=== PATIENT | female | born 1940 | race Caucasian/White ===

== ENCOUNTER 2022-08-11 12:46 | Outpatient (RCR) | payer MEDICARE, SELFPAY | END 2022-10-30 14:06 | disposition home or self-care (01) | LOC: HO.WCC 12:46 | PROVIDERS: PCP Nurse Practitioner Family; Visit Provider Physician Assistant | DX: C44.42 Squamous cell carcinoma of skin of scalp and neck (principal); C34.92 Malignant neoplasm of unspecified part of left bronchus or lung; C34.91 Malignant neoplasm of unspecified part of right bronchus or lung; I10 Essential (primary) hypertension; Z87.891 Personal history of nicotine dependence; Z92.21 Personal history of antineoplastic chemotherapy; Z92.3 Personal history of irradiation | CPT/HCPCS: 17250; 97597; 97602; 99213 ==

== ENCOUNTER 2022-11-27 13:44 | Outpatient (RCR) | payer MEDICARE, SELFPAY | END 2023-02-12 16:00 | disposition home or self-care (01) | LOC: HO.WCC 13:44 | PROVIDERS: PCP Nurse Practitioner Family; Visit Provider Physician Assistant | DX: S11.90XA Unspecified open wound of unspecified part of neck, initial encounter (principal); C79.89 Secondary malignant neoplasm of other specified sites; C77.0 Secondary and unspecified malignant neoplasm of lymph nodes of head, face and neck; C34.92 Malignant neoplasm of unspecified part of left bronchus or lung; C34.91 Malignant neoplasm of unspecified part of right bronchus or lung; I10 Essential (primary) hypertension; Z92.3 Personal history of irradiation; Z87.891 Personal history of nicotine dependence; Z91.81 History of falling | CPT/HCPCS: 11042; 11045; 97597; 97602 ==